=== PATIENT | female | born 2000 | race Caucasian/White ===

== ENCOUNTER 2019-11-03 23:52 | Emergency (ER) | payer OTHER ==
[2019-11-04] MEDS ORDERED: OLANZapine 10 MG Vial ONE (00:05)
[2019-11-04] MEDS ORDERED: OLANZapine 10 MG Vial IM ONE (00:05)
[2019-11-04 01:06] LABS: CHLORIDE,CL 107 mmol/L (98-107); SODIUM,NA 144 mmol/L (136-145)
[2019-11-04 01:07] LABS: ANION GAP 22.9 mmol/L (10-20)
[2019-11-04] MEDS ORDERED: Potassium Chloride 20 MEQ Tab.ER PO ONE (01:08)
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
[2019-11-04 06:24] LABS: BUPRENORPHINE,URINE NEGATIVE (NEGATIVE); MARIJUANA,URINE POSITIVE (NEGATIVE); METHYLENEDIOXYMETHAMP,UR POSITIVE (NEGATIVE); PHENCYCLIDINE,URINE NEGATIVE (NEGATIVE)
--- NOTE | 2019-11-04 10:03 | CR ---
[id number] RAD/RAD Chest PA or AP 1V EXAM: SINGLE VIEW CHEST. INDICATION: TRAUMA COMPARISON: NO PREVIOUS SIMILAR EXAM IS AVAILABLE FINDINGS: The lungs are clear There is no pneumothorax The cardiomediastinal contour is normal IMPRESSION: NO ACUTE PROCESS Maxim Greenfield MD 11/04/19 1000 Thank you for allowing us to participate in the care of your patient.
--- NOTE | 2019-11-04 10:03 | CT ---
[id number] CT/CT Head WO IV EXAM: CT Head WO IV CLINICAL DATA: TRAUMA COMPARISON: NO PREVIOUS SIMILAR EXAM IS AVAILABLE FOR COMPARISON. FINDINGS: There is no mass or mass effect. There is no hemorrhage or hydrocephalus. There are no extra-axial fluid collections. There are no sites of abnormal attenuation. IMPRESSION: NO PLAIN CT EVIDENCE OF ACUTE INTRACRANIAL PROCESS. Maxim Greenfield MD 11/04/19 1000 Thank you for allowing us to participate in the care of your patient.
--- NOTE | 2019-11-04 10:03 | CT ---
[id number] CT/CT Cervical Spine WO IV Exam: CT Cervical Spine WO IV Clinical Data: TRAUMA COMPARISON: NO PREVIOUS SIMILAR EXAM IS AVAILABLE FINDINGS: No fracture or subluxation is seen The prevertebral soft tissues are unremarkable Reversal of the normal lordosis likely represents muscle spasm IMPRESSION: NO FRACTURE OR SUBLUXATION Maxim Greenfield MD 11/04/19 1000 Thank you for allowing us to participate in the care of your patient.
== END 2019-11-04 02:21 ==
LOC: VM.ED 23:52
DX: S09.93XA Unspecified injury of face, initial encounter (principal); S10.93XA Contusion of unspecified part of neck, initial encounter; S50.812A Abrasion of left forearm, initial encounter; S50.811A Abrasion of right forearm, initial encounter; R44.0 Auditory hallucinations; F10.129 Alcohol abuse with intoxication, unspecified; Y90.7 Blood alcohol level of 200-239 mg/100 ml; F19.10 Other psychoactive substance abuse, uncomplicated; Y28.9XXA Contact with unspecified sharp object, undetermined intent, initial encounter
CPT/HCPCS: 36415; 70450; 71045; 72125; 80053; 80305; 80307; 85025; 85610; 96372; 99285; A9270; J3490